=== PATIENT | male | born 1955 | race Hispanic/Latino ===

== ENCOUNTER 2020-11-08 16:59 | Emergency (ER) | payer MEDICARE ==
[~2020-11-08] VITALS: Ht 172.7 cm; Wt 72.6 kg
[2020-11-08] MEDS ORDERED: IBUPROFEN 600 MG TAB ONE (17:19)
[2020-11-08] MEDS: IBUPROFEN 600 MG TAB PO STA ×2 (17:20→17:37)
[2020-11-08] MEDS: DEXAMETHASONE SOD PHOS INJ 4 MG/ML VIAL IM ONE (17:42)
[2020-11-08] MEDS: DEXAMETHASONE SOD PHOS INJ 4 MG/ML VIAL IV ONE (17:49)
[2020-11-08] MEDS ORDERED: DEXAMETHASONE SOD PHOS INJ 4 MG/ML VIAL ONE (17:54)
[2020-11-08] MEDS ORDERED: TESSALON PERLE100 MG PO (18:07)
[2020-11-08] MEDS ORDERED: PROVENTIL HFA6.7 GM INH (18:07)
[2020-11-08] MEDS: ACETAMINOPHEN 325 MG TAB PO PRN (18:15)
[2020-11-08 18:44] VITALS: BP 123/74
== END 2020-11-08 18:45 | disposition home or self-care (01) ==
LOC: FSED 17:11
DX: U07.1 COVID-19 (principal); J12.82 Pneumonia due to coronavirus disease 2019
CPT/HCPCS: 71045; 80053; 85025; 87040; 99284; J1100; U0002

== ENCOUNTER 2020-11-09 07:32 | Emergency (ER) | payer MEDICARE ==
[~2020-11-09] VITALS: Ht 172.7 cm; Wt 72.6 kg
[~2020-11-09 07:32] MED LIST: PROVENTIL HFA6.7 GM INH; TESSALON PERLE100 MG PO
[2020-11-09] MEDS: CASIRIVIMAB/IMDEVIMAB 10 ML in SODIUM CHLORIDE 0.9% 100 ML IV ONE (08:00)
[2020-11-09] MEDS ORDERED: SODIUM CHLORIDE 0.9% 250ML 250 ML ONE (08:08)
== END 2020-11-09 18:30 | disposition home or self-care (01) ==
LOC: ER 07:51
DX: U07.1 COVID-19 (principal)
CPT/HCPCS: 99282; J7050

== ENCOUNTER → 2022-05-05 | Day surgery (SDC) | payer MEDICARE, OTHER ==
[~2022-05-05] MED LIST changes: +ATORVASTATIN CA20 MG PO; +BUPIVACAINE 0.5%/EPI 30 ML SDV INJ ONE; +DEXAMETHASONE SOD PHOS INJ 4 MG/ML SDV ONE; +FENTANYL CITRATE/PF 100MCG/2 ML INJ ONE; +FLOMAX0.4 MG PO; +GLYCOPYRROLATE INJ 0.2 MG/ML VIAL ONE; +LIDOCAINE HCL 1% 30ML-PF VIAL ONE; +LIDOCAINE HCL 2% LOCAL INJ 5 ML SDV VIAL INJ ONE; +LIDOCAINE JELLY 2% 10ML URO-JET ONE; +LOSARTAN POTASS25 MG PO; +MIDAZOLAM HCL 2 MG/2 ML VIAL ONE; +MULTI-VITAMIN1 EACH PO; +ONDANSETRON HCL INJ 2MG/ML 2ML 2 MG/ML VIAL ONE; +POVIDONE IODINE 0.05% 0.05 % ML PO ONE; +PROPOFOL IV EMULSION 10 MG/ML 20 ML VIAL ONE; +SEVOFLURANE INHAL SOLN 250 ML PEN BTL ONE; +VITAMIN C 500500 MG PO
[2022-05-05 12:40] VITALS: BP 132/95
== END | disposition home or self-care (01) ==
LOC: OR 07:16
PROVIDERS: ATTEND Surgery
DX: K60.5 Anorectal fistula (principal); I10 Essential (primary) hypertension; N40.0 Benign prostatic hyperplasia without lower urinary tract symptoms; E78.5 Hyperlipidemia, unspecified; Z01.810 Encounter for preprocedural cardiovascular examination; Z01.818 Encounter for other preprocedural examination; Z79.899 Other long term (current) drug therapy; Z87.01 Personal history of pneumonia (recurrent); Z86.16 Personal history of COVID-19
CPT/HCPCS: 71046; 93005; J1100; J2001; J2250; J2405; J3010

== ENCOUNTER → 2022-06-15 | Outpatient (CLI) | payer OTHER ==
[~2022-06-15] MED LIST changes: -BUPIVACAINE 0.5%/EPI 30 ML SDV INJ ONE; -DEXAMETHASONE SOD PHOS INJ 4 MG/ML SDV ONE; -FENTANYL CITRATE/PF 100MCG/2 ML INJ ONE; -GLYCOPYRROLATE INJ 0.2 MG/ML VIAL ONE; -LIDOCAINE HCL 1% 30ML-PF VIAL ONE; -LIDOCAINE HCL 2% LOCAL INJ 5 ML SDV VIAL INJ ONE; -LIDOCAINE JELLY 2% 10ML URO-JET ONE; -MIDAZOLAM HCL 2 MG/2 ML VIAL ONE; -ONDANSETRON HCL INJ 2MG/ML 2ML 2 MG/ML VIAL ONE; -POVIDONE IODINE 0.05% 0.05 % ML PO ONE; -PROPOFOL IV EMULSION 10 MG/ML 20 ML VIAL ONE; -SEVOFLURANE INHAL SOLN 250 ML PEN BTL ONE
== END ==
LOC: RAD 15:48
PROVIDERS: ATTEND Internal Medicine
DX: R06.02 Shortness of breath (principal)
CPT/HCPCS: 71046